=== PATIENT | male | born 1960 | race Caucasian/White ===

== ENCOUNTER → 2021-01-18 | Outpatient (CLI) | payer MEDICARE, OTHER ==
[~2021-01-18] MED LIST: CLON1 PO; HYDR1TAB94 PO; TIZANIDINE HCL2 MG PO; Trihexyphenidyl2 MG PO
[2021-01-19 17:16] LABS: CORONAVIRUS (COVID19) CSH-NRL Negative (Negative)
== END | disposition home or self-care (01) ==
LOC: LAB SHORT 11:30 → LAB 11:30
PROVIDERS: Physician Assistant Surgical
DX: I48.91 Unspecified atrial fibrillation (principal); I51.7 Cardiomegaly; R94.31 Abnormal electrocardiogram [ECG] [EKG]
CPT/HCPCS: U0003